=== PATIENT | male | born 1940 | race Caucasian/White ===

== ENCOUNTER 2018-04-27 11:55 | Inpatient (IN) | payer MEDICARE, OTHER ==
[~2018-04-27] VITALS: Ht 160 cm; Wt 60.2 kg
[~2018-04-27 11:55] MED LIST: ALBU.083IS IH; ALBU2.5V5 NEB; ALBU90OI6 INH; ALBU90OI61 INH; ANORO ELLIPTA1 EACH INH; ASPI325EC PO; ASPI81EC PO; AZIT250; Aldactone25 MG PO; BP MED; BUDE.25 NEB; CARV3.125 PO; CEFP200; CEPH500 PO; CLOP75 PO; FLUT44OIA; FURO40 PO; GUAI600T33; GUAI600T33 PO; HYDACE5 PO; IPRA.03NI; IPRATROPIUM BROMIDE; ISOMON30 PO; LANS30EC PO; LAVAP17G PO; LEVFLO500 PO; LISI20 PO; Lasix40 MG PO; METO25ER PO; METO50 PO; METO50ER; NITR.4SL SL; NUTRISOURCE FI1 EACH PO; PHENA200 PO; POTCHL20ER PO; PRAV20 PO; PRED10; PRED10 PO; PRED20 PO; Pravachol40 MG PO; RANO500T PO; TAMS.4ER PO; Ventolin5 MG/1 ML IH
[2018-04-27] MEDS ORDERED: TRELEGY ELLIPT1 EACH IH (12:13)
[2018-04-27 12:22] LABS: BASOPHILS ABSOLUTE AUTO 0.05 K/mm3 (0.00-0.23); BASOPHILS PERCENT AUTO 1 % (0-2); EOSINOPHILS ABSOLUTE AUTO 0.07 K/mm3 (0.00-0.68); EOSINOPHILS PERCENT AUTO 1 % (0-6); Hematocrit 42.9 % (37.0-53.0); Hemoglobin 13.3 g/dL (13.5-17.5); IMMATURE GRAN ABSOLUTE AUTO 0.05 K/mm3 (0.00-0.10); IMMATURE GRAN PERCENT AUTO 1 % (0-1); LYMPHOCYTES ABSOLUTE AUTO 0.86 K/mm3 (0.84-5.20); LYMPHOCYTES PERCENT AUTO 9 % (21-46); MONOCYTES ABSOLUTE AUTO 0.93 K/mm3 (0.16-1.47); MONOCYTES PERCENT AUTO 9 % (4-13); Mean Corpuscular HGB 28.8 pg (26.0-34.0); Mean Corpuscular Volume 93 fL (80-100); Mean Platelet Volume 9.5 fL (9.1-12.4); NEUTROPHILS PERCENT AUTO 80 % (41-73); Platelet Count 329 K/mm3 (150-400); RDW Coefficient Variation 13.2 % (11.7-14.2); Red Blood Cell Count 4.62 M/mm3 (4.30-5.90); White Blood Cell Count 9.96 K/mm3 (4.00-11.30)
[2018-04-27 12:38] LABS: Alanine Aminotransfer (ALT/SGP 25 U/L (12-78); Albumin, Blood 3.5 g/dL (3.4-5.0); Albumin/Globulin Ratio 0.7 (0.8-1.8); Alk Phos 136 U/L (50-136); Anion Gap 7 mmol/L (6-16); Aspartate Aminotrans (AST/SGOT 21 U/L (12-37); Bilirubin, Total 0.6 mg/dL (0.1-1.0); Blood Urea Nitrogen 19 mg/dL (8-24); Bun/Creatinine Ratio 18.3 (12.0-20.0); CO2, Blood 32 mmol/L (21-32); Calcium, Blood 9.1 mg/dL (8.5-10.1); Chloride, Blood 97 mmol/L (98-108); Creatinine, Blood 1.04 mg/dL (0.60-1.20); Globulin, Blood 4.7 g/dL (2.2-4.0); Glomerular Filtration Rate >60 (60-); Glucose, Blood 102 mg/dL (70-99); Potassium, Blood 4.4 mmol/L (3.5-5.5); Sodium, Blood 136 mmol/L (136-145); Total Protein, Blood 8.2 g/dL (6.4-8.2); Troponin I 0.023 ng/mL (0.000-0.040)
[2018-04-27 12:49] LABS: PCO2 Arterial 53.8 mmHg (35-45); pH Blood Arterial 7.41 (7.35-7.45)
[2018-04-28] MEDS ORDERED: ACID REDUCER 1150 MG PO (00:53)
[2018-04-28] MEDS ORDERED: Micro-K10 MEQ PO (00:56)
[2018-04-28 04:24] LABS: Hematocrit 35.8 % (37.0-53.0); Hemoglobin 11.2 g/dL (13.5-17.5); Mean Corpuscular HGB 28.9 pg (26.0-34.0); Mean Corpuscular HGB Conc 31.3 g/dL (31.5-36.5); Mean Corpuscular Volume 92 fL (80-100); Mean Platelet Volume 9.5 fL (9.1-12.4); Platelet Count 251 K/mm3 (150-400); RDW Coefficient Variation 13.1 % (11.7-14.2); RDW Standard Deviation 44.4 fL (35.1-46.3); Red Blood Cell Count 3.88 M/mm3 (4.30-5.90); White Blood Cell Count 5.85 K/mm3 (4.00-11.30)
[2018-04-28 04:41] LABS: Anion Gap 6 mmol/L (6-16); Blood Urea Nitrogen 20 mg/dL (8-24); Bun/Creatinine Ratio 22.1 (12.0-20.0); CO2, Blood 33 mmol/L (21-32); Calcium, Blood 8.3 mg/dL (8.5-10.1); Chloride, Blood 101 mmol/L (98-108); Creatinine, Blood 0.91 mg/dL (0.60-1.20); Glomerular Filtration Rate >60 (60-); Glucose, Blood 132 mg/dL (70-99); Potassium, Blood 4.6 mmol/L (3.5-5.5); Sodium, Blood 140 mmol/L (136-145)
[2018-04-30] MEDS ORDERED: LORA.5 PO (08:53)
[2018-04-30] MEDS ORDERED: Flonase 0.05% N16 GM (08:56)
[2018-04-30] MEDS ORDERED: DOXY100 PO (08:59)
[2018-04-30] MEDS ORDERED: Acidophilus La100 GM PO (08:59)
[2018-04-30] MEDS ORDERED: GUAI600T33 PO (08:59)
[2018-04-30] MEDS ORDERED: PRED20 PO (09:00)
== END 2018-04-30 10:55 | disposition home health service (06) | DRG 189 ==
LOC: ER 11:55 → PCU 16:51 → MEDS 04-28 12:00
PROVIDERS: Internal Medicine
DX: J96.22 Acute and chronic respiratory failure with hypercapnia (principal); I50.32 Chronic diastolic (congestive) heart failure; J44.1 Chronic obstructive pulmonary disease with (acute) exacerbation; J96.21 Acute and chronic respiratory failure with hypoxia; I11.0 Hypertensive heart disease with heart failure; I27.20 Pulmonary hypertension, unspecified; E78.5 Hyperlipidemia, unspecified; K21.9 Gastro-esophageal reflux disease without esophagitis; N40.0 Benign prostatic hyperplasia without lower urinary tract symptoms; Z74.09 Other reduced mobility; I25.10 Atherosclerotic heart disease of native coronary artery without angina pectoris; Z87.01 Personal history of pneumonia (recurrent); Z95.1 Presence of aortocoronary bypass graft; Z95.5 Presence of coronary angioplasty implant and graft; Z87.891 Personal history of nicotine dependence; Z79.02 Long term (current) use of antithrombotics/antiplatelets; Z88.1 Allergy status to other antibiotic agents; Z88.5 Allergy status to narcotic agent
CPT/HCPCS: 36415; 36600; 71045; 71250; 80048; 80053; 82803; 83605; 83880; 84145; 84484; 85025; 85027; 87040; 93005; 93010; 94640; 94644; 94664; 94667; 94760; 96361; 96365; 96367; 96375; 98960; 99285-25; J0456; J0696; J1650; J2930; J7050; J7120